=== PATIENT | male | born 1995 | race Caucasian/White ===

== ENCOUNTER 2018-11-01 23:32 | Emergency (ER) | payer MEDICAID ==
[~2018-11-01] VITALS: Ht 193 cm; Wt 124.9 kg
[2018-11-02 08:16] VITALS: BP 110/67
== END 2018-11-02 14:05 ==
LOC: ED 11-02 00:06
DX: F15.151 Other stimulant abuse with stimulant-induced psychotic disorder with hallucinations (principal); F12.151 Cannabis abuse with psychotic disorder with hallucinations; F22 Delusional disorders
CPT/HCPCS: 36415; 70450; 80053; 80307; 85025; 96372; 99285; J3486; 96367

== ENCOUNTER 2019-03-18 20:57 | Emergency (ER) | payer MEDICAID ==
[~2019-03-18] VITALS: Ht 193 cm; Wt 127.6 kg
[~2019-03-18 20:57] MED LIST: CARI3CAP PO
[2019-03-18] MEDS ORDERED: ZIPR60CA3 PO (21:36)
[2019-03-18] MEDS ORDERED: ONDANSETRON ODT 4 MG PO ONE (22:00)
[2019-03-18] MEDS ORDERED: KETOROLAC 30 MG/1 ML IM ONE (22:00)
[2019-03-18] MEDS ORDERED: ONDANSETRON ODT 8 MG ONE (22:15)
[2019-03-18] MEDS ORDERED: KETOROLAC 60 MG/2 ML ONE (22:15)
--- NOTE | 2019-03-18 22:31 | NUR ---
PT RESTING. MEDICATED PER MAY.
[2019-03-18 22:39] LABS: BASOPHILS # (AUTO) 0.03 x10^3/uL (0-0.1); BASOPHILS % (AUTO) 0 % (0-1); EOSINOPHILS # (AUTO) 0.41 x10^3/uL (0-0.4); EOSINOPHILS % (AUTO) 4 % (1-7); LYMPHOCYTES # (AUTO) 1.45 x10^3/uL (1-3.4); LYMPHOCYTES % (AUTO) 15 % (22-44); MD NO; MEAN CORPUSCULAR HEMOGLOBIN 29.3 pg (27.5-34.5); MEAN CORPUSCULAR HGB CONC 33.2 g/dL (33.2-36.2); MEAN CORPUSCULAR VOLUME 88.1 fL (81-97); MEAN PLATELET VOLUME 8.1 fL (7.4-10.4); MONOCYTES # (AUTO) 0.86 x10^3/uL (0.2-0.8); MONOCYTES % (AUTO) 9 % (2-9); NEUTROPHILS # (AUTO) 7.18 x10^3/uL (1.8-6.8); NEUTROPHILS % (AUTO) 72 % (42-75); PLATELET COUNT 263 x10^3/uL (130-400); RED BLOOD COUNT 5.33 x10^6/uL (4.38-5.82)
[2019-03-18 22:50] LABS: ALANINE AMINOTRANSFERASE 44 U/L (12-78); ALBUMIN 3.8 g/dL (3.4-5.0); ANION GAP 6 mmol/L (5-15); CHLORIDE 109 mmol/L (98-107); CREATININE 1.19 mg/dL (0.7-1.3)
[2019-03-18 22:52] LABS: ALKALINE PHOSPHATASE 80 U/L (45-117); BILIRUBIN,TOTAL 0.5 mg/dL (0.2-1.0); TOTAL PROTEIN 6.9 g/dL (6.4-8.2)
--- NOTE | 2019-03-18 23:30 | NUR ---
PT RESTING WITH EYES CLOSED. MONITOR IN PLACE. FAMILY AT BEDSIDE.
[2019-03-19 00:10] LABS: AMPHETAMINE SCREEN, URINE Positive (Negative); BARBITURATE SCREEN, URINE Negative (Negative); BENZODIAZEPINE SCREEN, URINE Negative (Negative); CANNABINOID SCREEN, URINE Negative (Negative); COCAINE SCREEN, URINE Negative (Negative); METHADONE SCREEN, URINE Negative (Negative); OPIATE SCREEN, URINE Negative (Negative)
--- NOTE | 2019-03-19 00:39 | NUR ---
PT RESTING WITH EYES CLOSED. FAMILY AT BEDSIDE.
[2019-03-19 00:55] VITALS: BP 137/81
== END 2019-03-19 01:02 | disposition home or self-care (01) ==
LOC: ED 23:59
DX: S06.0X0A Concussion without loss of consciousness, initial encounter (principal); F15.229 Other stimulant dependence with intoxication, unspecified; F17.210 Nicotine dependence, cigarettes, uncomplicated; W22.8XXA Striking against or struck by other objects, initial encounter; Y93.89 Activity, other specified; Y92.410 Unspecified street and highway as the place of occurrence of the external cause; Y99.8 Other external cause status
CPT/HCPCS: 36415; 80053; 80307; 85025; 93005; 96372; 99284; J1885; Q0162

== ENCOUNTER 2019-03-20 15:04 | Emergency (ER) | payer MEDICAID ==
[~2019-03-20] VITALS: Ht 193 cm; Wt 130.9 kg
[~2019-03-20 15:04] MED LIST changes: +ZIPR60CA3 PO
[2019-03-20 15:14] VITALS: BP 124/91
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
--- NOTE | 2019-03-20 15:56 | NUR ---
Patient/Caregiver given discharge instructions and they have confirmed that they understand the instructions. Patient ambulatory with steady gait.
== END 2019-03-20 16:14 | disposition home or self-care (01) ==
LOC: ED 15:29
DX: S51.012D Laceration without foreign body of left elbow, subsequent encounter (principal); X58.XXXD Exposure to other specified factors, subsequent encounter
CPT/HCPCS: 99283

== ENCOUNTER 2019-06-22 20:00 | Emergency (ER) | payer MEDICAID ==
[~2019-06-22] VITALS: Ht 193 cm; Wt 134.5 kg
[2019-06-22 20:04] VITALS: BP 158/101
[2019-06-22] MEDS ORDERED: ZIPRASIDONE 20MG CAPSULE ONE (20:42)
[2019-06-22] MEDS ORDERED: ZIPRASIDONE 20MG CAPSULE PO SCH (21:00)
== END 2019-06-22 21:28 | disposition home or self-care (01) ==
LOC: ED 21:05
DX: F41.1 Generalized anxiety disorder (principal); Z76.0 Encounter for issue of repeat prescription
CPT/HCPCS: 99283

== ENCOUNTER 2019-07-03 22:57 | Emergency (ER) | payer MEDICAID ==
[~2019-07-03] VITALS: Ht 193 cm; Wt 138.0 kg
[2019-07-03] MEDS ORDERED: QUETIAPINE 25MG TABLET ONE ×2 (23:20→23:21)
[2019-07-03] MEDS ORDERED: QUETIAPINE 25MG TABLET PO ONE (23:30)
[2019-07-03 23:34] VITALS: BP 151/106
== END 2019-07-03 23:36 | disposition home or self-care (01) ==
LOC: ED 23:23
DX: R00.0 Tachycardia, unspecified (principal); Z76.0 Encounter for issue of repeat prescription
CPT/HCPCS: 93005; 99283

== ENCOUNTER 2019-07-12 00:39 | Emergency (ER) | payer MEDICAID ==
[~2019-07-12] VITALS: Ht 193 cm; Wt 143.6 kg
[2019-07-12 00:45] VITALS: BP 149/84
== END 2019-07-12 00:49 | disposition home or self-care (01) ==
LOC: ED 00:43
DX: F20.9 Schizophrenia, unspecified (principal); F17.210 Nicotine dependence, cigarettes, uncomplicated; Z76.0 Encounter for issue of repeat prescription
CPT/HCPCS: 99281

== ENCOUNTER 2020-12-08 15:25 | Emergency (ER) | payer MEDICAID ==
[~2020-12-08] VITALS: Ht 193 cm; Wt 123.0 kg
--- NOTE | 2020-12-08 16:15 | NUR ---
Pt very anxious, provides short answers. He denies any SI or HI as I asked that and he answered his aunt interjected and said "tell the truth now johnie". Pt still denies any SI/HI. EKG being done. Labs drawn, requested urine gave water. Aunt at bedside. Will continue to monitor.
[2020-12-08 16:32] LABS: BASOPHILS % (AUTO) 0 % (0-1); EOSINOPHILS % (AUTO) 1 % (1-7); LYMPHOCYTES % (AUTO) 4 % (22-44); MEAN CORPUSCULAR HEMOGLOBIN 28.6 pg (27.5-34.5); MEAN CORPUSCULAR HGB CONC 33.9 g/dL (33.2-36.2); MEAN PLATELET VOLUME 7.8 fL (7.4-10.4); MONOCYTES % (AUTO) 6 % (2-9); NEUTROPHILS % (AUTO) 88 % (42-75); PLATELET COUNT 274 x10^3/uL (130-400); RED CELL DISTRIBUTION WIDTH 13.7 % (9.4-14.8)
[2020-12-08 16:41] LABS: ALANINE AMINOTRANSFERASE 22 U/L (12-78); ALBUMIN 3.8 g/dL (3.4-5.0); ANION GAP 7 mmol/L (5-15); CALCIUM 8.8 mg/dL (8.5-10.1); CHLORIDE 108 mmol/L (98-107)
[2020-12-08 16:42] LABS: SALICYLATE LEVEL < 1.7 mg/dL (2.8-20.0)
[2020-12-08 16:44] LABS: ALKALINE PHOSPHATASE 99 U/L (45-117); BILIRUBIN,TOTAL 0.7 mg/dL (0.2-1.0); CREATININE 0.97 mg/dL (0.7-1.3); TOTAL PROTEIN 7.4 g/dL (6.4-8.2)
[2020-12-08] MEDS ORDERED: ZIPRASIDONE 20 MG INJ IM ONE ×2 (17:38→18:30)
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
--- NOTE | 2020-12-08 18:24 | NUR ---
PT BROUGHT BACK BY SECURITY. PT PLACED IN 4 POINTS. SITTER IN HALLWAY. RESTRAINT DOCUMENTATION ON CHART.
--- NOTE | 2020-12-08 18:32 | NUR ---
MOTHER BOYD PEDROZA-[id number] CHITRA INDERJIT DAD [id number] GENIA KEYON AUNT. [id number] WISH TO BE UPDATED ON PT STATUS.
--- NOTE | 2020-12-08 18:34 | NUR ---
PT COMPLAINING OF TIGHT RESTRAINTS. RESTRAINTS ASSESSED BY THIS RN. DISTAL CMS INTACT. PT ATTEMPTING TO BARGIN WITH THIS RN TO LET OUT AND PROMISES TO BEHAVE. PT EXPLAINED NEED FOR RESTRAINTS.
[2020-12-08] MEDS ORDERED: OLANZAPINE 10 MG INJ IM PRN (19:30)
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
--- NOTE | 2020-12-08 21:05 | NUR ---
PT RESTING COMFORTABLY IN NO ACUTE DISTRESS WITH SITTER AT BEDSIDE. NO NEEDS AT THIS TIME.
--- NOTE | 2020-12-08 21:24 | NUR ---
SECURITY CALLED TO ASSIST PATIENT TO THE RESTROOM, RESTRAINTS RELEASED AND SECURITY STAYED AT BEDSIDE THROUGHOUT. PATIENT STRIPPED FROM CLOTHING AT THIS TIME. WATER PROVIDED.
--- NOTE | 2020-12-08 21:52 | NUR ---
Patient changed to 2 point restraints and meal provided. (late entry)
--- NOTE | 2020-12-08 23:25 | NUR ---
PATIENT RESTING QUIETLY AT THIS TIME. NO NEEDS. SITTER AT BEDSIDE.
--- NOTE | 2020-12-09 02:06 | NUR ---
Packet faxed to [facility] for first dibs.
--- NOTE | 2020-12-09 02:28 | NUR ---
PATIENT SLEEPING, NO NEEDS, REPORT TO ANTOINE CHÁVEZ.
--- NOTE | 2020-12-09 03:29 | NUR ---
PT SLEEPING AND REMAINS ON 2 LIMB RESTRAINT. SEE ASSESMENT SHEETS. NO CHANGES, NO ACUTE DISTRESS.
--- NOTE | 2020-12-09 05:30 | NUR ---
Packet faxed to [facility].
--- NOTE | 2020-12-09 06:14 | NUR ---
[facility] NURSE CALLED FOR SOME QUESTIONS ON ROSALIE. RN UPDATED AND PT REMAINS ON 2 POINT RESTRAINTS WHEN HE WAKES UP, THE PT TRIES TO TALK HIS WAY OUT TO THE RESTROOM WITH A PLAN TO LEAVE. PT REMAINS ON ONE ARM AND ONE LEG RESTRAINT, HAS GOOD CMS, AND INTACT PULSES, SERVICES MGR LESS THAN 2 SECONDS. PT PROVIDED WATER AND OFFERED BEDSIDE COMMODE OR URINAL AND REFUSED THEM AT THIS TIME.
--- NOTE | 2020-12-09 07:10 | NUR ---
care assumed. pt sleeping. o2 sat 96%
--- NOTE | 2020-12-09 07:17 | NUR ---
PT IN ROOM ASLEEP. PT AROUSES TO VOICE.
--- NOTE | 2020-12-09 08:00 | NUR ---
plan of care discussed with pt. pt agrees with restraint release trial and verbalizes that he will not elope or be hostile and agressive to any staff. sitter outside room.
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
--- NOTE | 2020-12-09 14:00 | NUR ---
CALLED [facility] TO FOLLOW UP. SPOKE WITH BERTHA AT INTAKE. ALL QUESTIONS ANS. BERTHA IS GOING TO TALK TO [facility] AND WILL CALL [facility] BACK
--- NOTE | 2020-12-09 14:09 | NUR ---
SPOKE WITH PT. PT CALM AND COOPERATIVE.
--- NOTE | 2020-12-09 15:00 | NUR ---
PT TO ROOM 3. REPORT TO RN.
[2020-12-09] MEDS ORDERED: LORazepam 1MG TABLET PO PRN (15:30)
[2020-12-09] MEDS ORDERED: LORazepam 1MG TABLET ONE (15:33)
[2020-12-09] MEDS ORDERED: OLANZAPINE ODT 10MG ONE (16:10)
[2020-12-09] MEDS ORDERED: OLANZAPINE 10 MG INJ IM PRN (16:30)
[2020-12-09] MEDS ORDERED: OLANZAPINE ODT 10MG PO ONE (16:30)
--- NOTE | 2020-12-09 18:31 | NUR ---
pt resting wuth eyes closed. respirations even and unlabored. pt ate dinner and given fluids. secured room with sitter present.
[2020-12-09 18:46] VITALS: BP 122/78
--- NOTE | 2020-12-09 19:55 | NUR ---
PT SLEEPING ON GURNEY. NADN. PSYCH PERCAUTIONS MAINTAINED. SITTER AT BEDSIDE.
--- NOTE | 2020-12-09 21:40 | NUR ---
PT SLEEPING ON GURNEY. NADN. PSYCH PERCAUTIONS MAINTAINED. SITTER AT BEDSIDE.
== END 2020-12-09 18:33 ==
LOC: ED 17:16
DX: F20.1 Disorganized schizophrenia (principal); R94.31 Abnormal electrocardiogram [ECG] [EKG]
CPT/HCPCS: 36415; 80053; 80299; 80320; 85025; 93005; 96372; 99285; J3486; 80329; G0480